=== PATIENT | female | born 1960 ===

== ENCOUNTER 2020-12-13 15:09 | Emergency (ER) | payer MEDICARE ==
[~2020-12-13] VITALS: Ht 182.9 cm; Wt 137.3 kg
[2020-12-13 15:13] VITALS: BP 143/66
--- NOTE | 2020-12-13 16:49 | NUR ---
TASK RN: PT BEING DISCHARGED HOME IN A STABLE CONDITION. DC INSTRUCTIONS DISCUSSED WITH PT. PT VERBALIZED UNDERSTANDING. NO FURTHER QUESTIONS OR CONCERNS EXPRESSED AT THAT TIME. PT GETTING SELF DRESSED. RN TO WALK PT TO OUT OF ED WHEN READY.
== END 2020-12-13 16:51 | disposition home or self-care (01) ==
LOC: ED 16:30
DX: U07.1 COVID-19 (principal); J06.9 Acute upper respiratory infection, unspecified; R07.89 Other chest pain
CPT/HCPCS: 71045; 99284; U0003